=== PATIENT | male | born 1985 | race Caucasian/White ===

== ENCOUNTER 2021-12-19 10:31 | Emergency (ER) | payer OTHER ==
[~2021-12-19] VITALS: Ht 170.2 cm; Wt 79.4 kg
[2021-12-19] MEDS ORDERED: MIRALAX17 GM PO (11:07)
== END 2021-12-19 12:10 | disposition home or self-care (01) ==
LOC: ER 10:31
DX: K59.09 Other constipation (principal)

== ENCOUNTER 2024-08-16 08:23 | Day surgery (SDC) | payer OTHER ==
[2024-08-10 09:18] LABS: HEMATOCRIT 44.6 % (39.0-48.0); HEMOGLOBIN 15.4 g/dL (13-16.00); MEAN CELL VOLUME 89.1 fL (80.0-100.00); MEAN CORPUSCULAR HEMOGLOBIN 30.8 pg (27.00-32.0); MEAN CORPUSCULAR HGB CONC 34.5 g/dl (32.0-36.0); PLATELET COUNT 251 K/uL (150-450); RED CELL DISTRIBUTION WIDTH 12.5 % (11.5-14.5)
[2024-08-10 09:48] LABS: PH,URINE 5.5 (5.0-8.0); URINE APPEARANCE Clear; URINE BILIRRUBIN Negative (NEGATIVE); URINE BLOOD Negative; URINE COLOR Yellow; URINE GLUCOSE Negative (NEGATIVE); URINE KETONE Trace (NEGATIVE); URINE LEUKOCYTE Negative; URINE NITRATE Negative; URINE PROTEIN Negative (NEGATIVE); URINE UROBILINOGEN 0.2 E.U./dl
[2024-08-10 09:52] LABS: URINE BACTERIA 13.8 uL (0.0-1933); URINE RBC 4.7 uL (0.0-20.8); URINE WBC 2.4 uL (0.0-23.2)
[2024-08-10 09:59] LABS: URINE CAST 0.15 uL (0.0-1.40)
[2024-08-10 10:07] LABS: INR 1.05; PARTIAL THROMBOPLASTIN TIME 30.1 SECONDS (22.0-34.0)
[2024-08-10 10:09] VITALS: BP 111/74
[2024-08-10 10:11] LABS: PROTHROMBIN TIME 11.4 SECONDS (9.0-11.5)
[2024-08-10 10:38] LABS: ALBUMIN 4.3 gm/dL (3.4-5.0); BILIRUBIN TOTAL 0.74 mg/dL (0.3-1.2); CALCIUM 9.5 mg/dL (8.5-10.1); CREATININE SERUM 1.12 mg/dL (0.70-1.30); GFR 72.25; GLOBULINA 3.4 G/DL (2.4-3.5); POTASSIUM 4.43 mEq/L (3.5-5.1); TOTAL PROTEIN 7.7 gm/dL (6.4-8.2)
[~2024-08-16] VITALS: Ht 170.2 cm; Wt 78.0 kg
[~2024-08-16 08:23] MED LIST: MIRALAX17 GM PO
[2024-08-16] MEDS ORDERED: KETOROLAC TROMETHAMINE 30 MG VIAL ONE (11:50)
[2024-08-16] MEDS ORDERED: BUPIVACAINE HCL/MPF 0.5% 30ML VIAL ONE (11:51)
[2024-08-16] MEDS ORDERED: CEFAZOLIN SODIUM 1,000 MG VIAL ONE (11:51)
[2024-08-16] MEDS ORDERED: MORPHINE SULFATE 4 MG/ML VIAL IV ONE (14:15)
== END 2024-08-16 15:50 | disposition home or self-care (01) ==
LOC: CIR.AMB 08:23
PROVIDERS: ATTEND Orthopaedic Surgery
DX: M75.41 Impingement syndrome of right shoulder (principal); M19.011 Primary osteoarthritis, right shoulder; M75.21 Bicipital tendinitis, right shoulder; M24.111 Other articular cartilage disorders, right shoulder